=== PATIENT | female | born 1995 | race American Indian/Alaskan Native ===

== ENCOUNTER 2021-08-15 14:23 | Emergency (ER) | payer SELFPAY ==
--- NOTE | 2021-08-15 14:28 | Emergency Department Report ---
Stated Complaint: CRAMPING AND PAIN/ Time Seen by Provider: 08/15/21 14:26 - HPI History of Present Illness: who is approximately 8 weeks gestation with a history of a placenta previa presents to the emergency department for evaluation of persistent nausea vomiting along with abdominal pain and cramping. She denies dysuria, fever, and vaginal bleeding. - ROS Review of Systems: Abdominal pain and cramping, nausea, and vomiting. She denies fever, dysuria, and vaginal bleeding. - Exam Physical Exam: No abdominal tenderness noted MSE screening note: Focused history and physical exam performed. Due to findings the following was ordered: ED Disposition for MSE Condition: Stable
[2021-08-15] MEDS ORDERED: SODIUM CHLORIDE 0.9% 1000 ML 1,000 ML IV ONE (14:29)
[2021-08-15] MEDS ORDERED: ONDANSETRON 4 MG/2 ML INJ IV ONE (14:29)
[2021-08-15 15:26] LABS: Hematocrit 36.4 % (30.3-42.9); Mean Corpuscular HGB Conc 33 % (30-34); Mean Corpuscular Volume 84 fl (79-97); Platelet Count 319 K/mm3 (140-440); Red Blood Count 4.32 M/mm3 (3.65-5.03); Red Cell Distribution Width 15.2 % (13.2-15.2)
[2021-08-15 15:49] LABS: Alanine Aminotransferase 11 units/L (7-56); Albumin 4.1 g/dL (3.9-5); Blood Urea Nitrogen 8 mg/dL (7-17); Calcium 9.3 mg/dL (8.4-10.2); Hemolysis Index 1
[2021-08-15 15:56] LABS: BUN/Creatinine Ratio 11
--- NOTE | 2021-08-15 16:18 | Ultrasound Report ---
ULTRASOUND OBSTETRIC INDICATION / CLINICAL INFORMATION: and abdominal pain. Clinical Gestational Age (GA): 8.4 weeks.days TECHNIQUE: Transabdominal. COMPARISON: None available. FINDINGS: GESTATIONAL SAC: Well-defined oval shape and intrauterine in location. YOLK SAC: No significant abnormality. EMBRYO/FETUS: No significant abnormality. - Deer-Rump Length = 2.0 cm = 8.4 weeks.days - Heart Rate, beats per minute (if present) = 166 ADNEXA: No significant abnormality. FREE FLUID: None. ADDITIONAL FINDINGS: None. IMPRESSION: 1. Single, living intrauterine with estimated sonographic age of 8.4 weeks.days. Signer Name: Tunde Murray MD Signed: 08/15/2021 4:14 PM Workstation Name: [id number]
--- NOTE | 2021-08-15 17:02 | Emergency Department Report ---
ED General Adult HPI - General Chief complaint: Medical Clearance Stated complaint: CRAMPING AND PAIN/ Time Seen by Provider: 08/15/21 14:26 Source: patient Mode of arrival: Ambulatory Limitations: No Limitations - History of Present Illness Initial comments: 26-year-old female with no significant past medical history reports nausea and vomiting since finding out 2 to 3 weeks ago that she was . Patient reports slight abdominal cramping but denies vaginal bleeding vaginal pain. No vaginal discharge reported as well. Patient reports whenever she drinks fluids patient vomits her fluids back up. Patient reports she is able to tolerate small snacks at times. Patient reports that she has an appointment with [facility] on August 28. Last menstrual period was June 16. Patient is a G2, P1. No other acute symptoms reported - Related Data Previous Rx's Medication Instructions Recorded Last Taken Type Ondansetron [Zofran Odt] 4 mg PO Q12HR PRN 3 Days #6 08/15/21 Unknown Rx tab.rapdis cephALEXin [Keflex] 500 mg PO Q12HR 5 Days #10 cap 08/15/21 Unknown Rx Allergies Allergy/AdvReac Type Severity Reaction Status Date / Time No Known Allergies Allergy Verified 08/15/21 14:29 ED Review of Systems ROS: Stated complaint: CRAMPING AND PAIN/ Other details as noted in HPI Constitutional: denies: chills, fever Eyes: denies: eye pain, eye discharge, vision change ENT: denies: ear pain, throat pain Respiratory: denies: cough, shortness of breath, wheezing Cardiovascular: denies: chest pain, palpitations Endocrine: no symptoms reported Gastrointestinal: abdominal pain (Cramping), nausea, vomiting. denies: diarrhea Genitourinary: denies: urgency, dysuria, discharge Musculoskeletal: denies: back pain, joint swelling, arthralgia Skin: denies: rash, lesions Neurological: denies: headache, weakness, paresthesias Psychiatric: denies: anxiety, depression Hematological/Lymphatic: denies: easy bleeding, easy bruising ED Past Medical Hx - Past Medical History Previous Medical History?: No - Medications Home Medications: Home Medications Medication Instructions Recorded Confirmed Last Taken Type Ondansetron [Zofran Odt] 4 mg PO Q12HR PRN 3 Days #6 08/15/21 Unknown Rx tab.rapdis cephALEXin [Keflex] 500 mg PO Q12HR 5 Days #10 cap 08/15/21 Unknown Rx ED Physical Exam - General Limitations: No Limitations General appearance: alert, in no apparent distress - Head Head exam: Present: atraumatic, normocephalic - Eye Eye exam: Present: normal appearance - ENT ENT exam: Present: mucous membranes moist - Neck Neck exam: Present: normal inspection - Respiratory Respiratory exam: Present: normal lung sounds bilaterally. Absent: respiratory distress - Cardiovascular Cardiovascular Exam: Present: regular rate, normal rhythm. Absent: systolic murmur, diastolic murmur, rubs, gallop - GI/Abdominal GI/Abdominal exam: Present: soft, normal bowel sounds. Absent: distended, tenderness, guarding - Extremities Exam Extremities exam: Present: normal inspection - Back Exam Back exam: Present: normal inspection - Neurological Exam Neurological exam: Present: alert, oriented X3 - Psychiatric Psychiatric exam: Present: normal affect, normal mood - Skin Skin exam: Present: warm, dry, intact, normal color. Absent: rash ED Course Vital Signs 08/15/21 14:26 Temperature 97.7 F Pulse Rate 89 Respiratory 16 Rate Blood Pressure 150/80 [Left] O2 Sat by Pulse 100 Oximetry ED Medical Decision Making - Lab Data Result diagrams: 08/15/21 15:08 08/15/21 15:08 - Radiology Data Radiology results: [place] [id number] Ultrasound Report Signed Patient: PORFIRIO ERWIN MR#: [id number] 327 : 1995 Acct:[id number] Age/Sex: 26 / F ADM Date: 08/15/21 Loc: ED Attending Dr: Ordering Physician: PARKER HUNTER Date of Service: 08/15/21 Procedure(s): US OB <= 14 weeks fetus Accession Number(s): [id number] cc: PARKER HUNTER ULTRASOUND OBSTETRIC INDICATION / CLINICAL INFORMATION: and abdominal pain. Clinical Gestational Age (GA): 8.4 weeks.days TECHNIQUE: Transabdominal. COMPARISON: None available. FINDINGS: GESTATIONAL SAC: Well-defined oval shape and intrauterine in location. YOLK SAC: No significant abnormality. EMBRYO/FETUS: No significant abnormality. - Ola-Rump Length = 2.0 cm = 8.4 weeks.days - Heart Rate, beats per minute (if present) = 166 ADNEXA: No significant abnormality. FREE FLUID: None. ADDITIONAL FINDINGS: None. IMPRESSION: 1. Single, living intrauterine with estimated sonographic age of 8.4 weeks.days. Signer Name: Tunde Murray MD Signed: 08/15/2021 4:14 PM Workstation Name: [id number] Transcribed By: EDWIGE Dictated By: Tunde Murray MD Electronically Authenticated By: Tunde Murray MD Signed Date/Time: 08/15/211613 DD/ 12 TD/TT: - Medical Decision Making 26-year-old female reports to the ER with complaints of nausea abdominal cramping for about 2 to 3 weeks at the final she was . Patient's LMP was June 16. Patient denies bleeding, no vaginal pain, no vaginal discharge. Patient abdominal cramping is like a 2 out of 10 pain. On physical exam no abdominal pain or pelvic pain is noted. Patient ultrasound reports a intrauterine at 8 weeks 4 days. Patient updated on her ultrasound results. No acute process noted in CBC, CMP . hCG is 145,995. UA negative nitrites positive leukocytes with some bacteria noted. Will start patient on Keflex 500 mg 3 times a day for 5 days. Patient reports that she has upcoming [facility] appointment with [facility] on August 28. Patient will be sent home with Zofran for twice a day for 3 days. Patient informed that if symptoms were to continue to report back to the ER, And to keep her appointment up with [facility]. Patient agrees with plan of care and verbalizes understanding. Patient stable for discharge. Vital Signs 08/15/21 14:26 Temperature 97.7 F Pulse Rate 89 Respiratory 16 Rate Blood Pressure 150/80 [Left] O2 Sat by Pulse 100 Oximetry Labs 08/15/21 08/15/21 08/15/21 15:08 15:08 15:08 WBC 9.9 RBC 4.32 Hgb 12.0 Hct 36.4 MCV 84 MCH 28 MCHC 33 RDW 15.2 Plt Count 319 Sodium 137 Potassium 3.6 Chloride 102.1 Carbon Dioxide 23 Anion Gap 16 BUN 8 Creatinine 0.7 Estimated GFR > 60 BUN/Creatinine Ratio 11 Glucose 79 Calcium 9.3 Total Bilirubin 0.20 AST 16 ALT 11 Alkaline Phosphatase 91 Total Protein 7.3 Albumin 4.1 Albumin/Globulin Ratio 1.3 HCG, Quant [id number] H Urine Color Urine Turbidity Urine pH Ur Specific [place] Urine Protein Urine Glucose (UA) Urine Ketones Urine Blood Urine Nitrite Urine Bilirubin Urine Urobilinogen Ur Leukocyte Esterase Urine WBC (Auto) Urine RBC (Auto) U Epithel Cells (Auto) Urine Bacteria (Auto) Urine Mucus 08/15/21 18:30 WBC RBC Hgb Hct MCV MCH MCHC RDW Plt Count Sodium Potassium Chloride Carbon Dioxide Anion Gap BUN Creatinine Estimated GFR BUN/Creatinine Ratio Glucose Calcium Total Bilirubin AST ALT Alkaline Phosphatase Total Protein Albumin Albumin/Globulin Ratio HCG, Quant Urine Color Yellow Urine Turbidity Slightly-cloudy Urine pH 6.0 Ur Specific [place] 1.027 Urine Protein <15 mg/dl Urine Glucose (UA) Neg Urine Ketones 20 Urine Blood Neg Urine Nitrite Neg Urine Bilirubin Neg Urine Urobilinogen < 2.0 Ur Leukocyte Esterase Tr Urine WBC (Auto) 6.0 Urine RBC (Auto) 10.0 U Epithel Cells (Auto) 45.0 H Urine Bacteria (Auto) 1+ Urine Mucus 3+ Critical care attestation.: If time is entered above; I have spent that time in minutes in the direct care of this critically ill patient, excluding procedure time. ED Disposition Clinical Impression: Vomiting affecting , Vomiting during , Abdominal cramping affecting UTI (urinary tract infection) Qualifiers: Urinary tract infection type: acute cystitis Hematuria presence: without hematuria Qualified Code(s): N30.00 - Acute cystitis without hematuria Disposition: HOME / SELF CARE / HOMELESS Is pt being admited?: No Condition: Stable Instructions: Nausea and Vomiting, Adult, Hyperemesis Gravidarum, Abdominal Pain During Prescriptions: cephALEXin [Keflex] 500 mg PO Q12HR 5 Days #10 cap Ondansetron [Zofran Odt] 4 mg PO Q12HR PRN 3 Days #6 tab.rapdis PRN Reason: Nausea Time of Disposition: 18:59
[2021-08-15 18:38] LABS: Bilirubin,Urine NEG (Negative); Blood,Urine NEG (Negative); Color,Urine Yellow (Yellow); Protein,Urine <15 mg/dL mg/dL (Negative); Urobilinogen,Urine < 2.0 mg/dL (<2.0)
[2021-08-15 18:47] LABS: Bacteria,Urine 1+ /HPF (Negative); Mucus,Urine 3+ /HPF
[2021-08-15 19:29] VITALS: BP 99/65
== END 2021-08-15 19:29 | disposition home or self-care (01) ==
LOC: ED 14:23
DX: O23.41 Unspecified infection of urinary tract in pregnancy, first trimester (principal); N39.0 Urinary tract infection, site not specified; O20.9 Hemorrhage in early pregnancy, unspecified; O21.9 Vomiting of pregnancy, unspecified; Z79.899 Other long term (current) drug therapy
CPT/HCPCS: 36415; 76801; 80053; 81001; 84702; 85027; 96361; 96374; 99284; J2405; J7030